=== PATIENT | female | born 1970 | race Caucasian/White ===

== ENCOUNTER 2016-11-16 16:06 | Inpatient (IN) | payer OTHER ==
[~2016-11-16] VITALS: Ht 165.1 cm; Wt 63.5 kg
[2016-11-16 17:35] LABS: CHLORIDE SERUM 105 mmol/L (98-107); CREATININE SERUM 0.6 mg/dL (0.6-1.0); GFR1 > 60 mL/min; GLUCOSE SERUM 98 mg/dL (74-106); POTASSIUM SERUM 3.7 mmol/L (3.5-5.1); SODIUM SERUM 141 mmol/L (136-145)
[2016-11-16 17:39] LABS: ALBUMIN 3.7 g/dL (3.4-5.0); ALKALINE PHOSPHATASE 198 U/L (46-116); ALT/SGPT 57 U/L (14-59); AST/SGOT 36 U/L (15-37); BILIRUBIN TOTAL 0.3 mg/dL (0.20-1.00)
[2016-11-16 17:57] LABS: TOTAL PROTEIN, SERUM 8.5 g/dL (6.4-8.2)
[2016-11-16 17:59] LABS: BASOPHIL % 0.6 % (0-2)
[2016-11-16 18:01] LABS: PLATELET COUNT 402 x10^3mcL (130-400); RED CELL DISTRIBUTION WIDTH 17.1 % (11.5-14.5)
[2016-11-16 18:14] LABS: AMPHETAMINE QUAL UR NONE DETECTED (NEG <=1000)
[2016-11-16] MEDS ORDERED: NATURAL IRON65 MG PO (22:47)
[2016-11-16 23:42] VITALS: BP 124/72
[2016-11-16 23:45] LABS: FREE T4 1.17 ng/dL (0.76-1.46); FREE THYROXINE INDEX 3.3 ug/dL (1.4-4.5); T4(THYROXINE) 9.6 ug/dL (4.7-13.3)
[2016-11-17 00:07] LABS: T3 TOTAL 1.2 ng/mL
[2016-11-17 05:06] VITALS: BP 112/64
[2016-11-17 07:12] LABS: UA SPECIFIC GRAVITY 1.025 (1.005-1.035); microscopic required? YES; urine erythrocyte NEGATIVE (NEGATIVE)
[2016-11-17 07:52] LABS: BASOPHIL % 0.6 % (0-2); PLATELET COUNT 345 x10^3mcL (130-400)
[2016-11-17 08:07] LABS: ALKALINE PHOSPHATASE 161 U/L (46-116); ALT/SGPT 47 U/L (14-59); AST/SGOT 27 U/L (15-37); BILIRUBIN TOTAL 0.54 mg/dL (0.20-1.00); CALCIUM 8.4 mg/dL (8.5-10.1); CARBON DIOXIDE 26.2 mmol/L (21-32); CHLORIDE SERUM 107 mmol/L (98-107); CREATININE SERUM 0.6 mg/dL (0.6-1.0); GFR1 > 60 mL/min; GLUCOSE SERUM 83 mg/dL (74-106); POTASSIUM SERUM 3.8 mmol/L (3.5-5.1); SODIUM SERUM 142 mmol/L (136-145); TOTAL PROTEIN, SERUM 6.9 g/dL (6.4-8.2)
[2016-11-17 08:11] LABS: RED CELL DISTRIBUTION WIDTH 17.3 % (11.5-14.5)
[2016-11-17 08:13] LABS: ALBUMIN 3.2 g/dL (3.4-5.0)
[2016-11-17 08:49] LABS: rbc morphology (normal/abnorm) ABNORMAL (NORMAL)
[2016-11-17 09:00] VITALS: BP 116/73
[2016-11-17 17:28] VITALS: BP 119/79
[2016-11-17] MEDS ORDERED: NITROFURANTOIN100 MG PO (18:31)
[2016-11-17] MEDS ORDERED: LAC PO (18:31)
[2016-11-17 18:33] VITALS: BP 119/79
[2016-11-17 18:35] VITALS: BP 119/79
== END 2016-11-17 19:40 | disposition home or self-care (01) | DRG 812 ==
LOC: EDBD 16:06 → ED 16:06 → DU 22:29 → MU 11-17 08:54
PROVIDERS: Emergency Medicine; ADMIT Family Medicine
DX: T39.311A Poisoning by propionic acid derivatives, accidental (unintentional), initial encounter (principal); G92 Toxic encephalopathy; F10.121 Alcohol abuse with intoxication delirium; T51.0X1A Toxic effect of ethanol, accidental (unintentional), initial encounter; F43.23 Adjustment disorder with mixed anxiety and depressed mood; N39.0 Urinary tract infection, site not specified; D50.9 Iron deficiency anemia, unspecified; E78.5 Hyperlipidemia, unspecified; Z68.23 Body mass index [BMI] 23.0-23.9, adult; Y90.5 Blood alcohol level of 100-119 mg/100 ml; Y92.009 Unspecified place in unspecified non-institutional (private) residence as the place of occurrence of the external cause
CPT/HCPCS: 82962; 83880; 84439; G0480; J0696; J7030; Q0092